=== PATIENT | female | born 1985 | race African-American/Black ===

== ENCOUNTER 2017-12-31 12:05 | Outpatient (CLI) | payer OTHER ==
[2017-12-31] MEDS: LACTATED RINGER'S 1,000 ML IV (13:46)
== END 2017-12-31 17:00 | disposition home or self-care (01) ==
LOC: OBT 12:05 → L-D 12:05 → OBT 17:00
DX: O36.8130 Decreased fetal movements, third trimester, not applicable or unspecified (principal); Z3A.39 39 weeks gestation of pregnancy
CPT/HCPCS: 36415; 76816; 76818; 96360; 96361

== ENCOUNTER 2018-01-01 10:22 | Inpatient (IN) | payer OTHER ==
[2018-01-01] MEDS ORDERED: CARBOPROST 250 MCG INJ IM (11:30)
[2018-01-01] MEDS ORDERED: BUTORPHANOL 1 MG INJ IV (11:30)
[2018-01-01] MEDS ORDERED: OXYTOCIN 30 UNITS/LR 500 ML IV (11:30)
[2018-01-01] MEDS ORDERED: MISOPROSTOL 200 MCG TAB PR (11:30)
[2018-01-01] MEDS ORDERED: LIDOCAINE 1% (MPF) 30 ML INJ INJ (11:30)
[2018-01-01] MEDS ORDERED: METHYLERGONOVINE 0.2 MG INJ IM (11:30)
[2018-01-01] MEDS ORDERED: BUTORPHANOL 2 MG INJ IV (11:30)
[2018-01-01] MEDS: LACTATED RINGER'S 1,000 ML IV* ×4 (11:49→22:45)
[2018-01-01 12:01] LABS: ADD MAN DIFF? NO
[2018-01-01 12:10] LABS: BASOPHILS % 0.2 % (0.0-2.0); EOSINOPHILS % 0.4 % (0.0-7.0); HEMATOCRIT 39.5 % (37.0-47.0); HEMOGLOBIN 12.9 g/dl (12.0-16.0); LYMPHOCYTES # 1.5 10^3/ul (0.8-2.9); LYMPHOCYTES % 31.3 % (15.0-51.0); MEAN CORPUSCULAR HEMOGLOBIN 27.7 pg (29.0-33.0); MEAN CORPUSCULAR HGB CONC 32.7 g/dl (32.0-37.0); MEAN CORPUSCULAR VOLUME 84.9 fl (82.0-101.0); MEAN PLATELET VOLUME 11.2 fl (7.4-10.4); MONOCYTE # 0.6 10^3/ul (0.3-0.9); MONOCYTES % 11.2 % (0.0-11.0); NEUTROPHIL # 2.7 10^3/ul (1.6-7.5); NEUTROPHILS % 54.4 % (39.0-77.0); PLATELET COUNT 175 10^3/UL (140-415); RED BLOOD COUNT 4.65 10^6/ul (4.20-5.40); RED CELL DISTRIBUTION WIDTH 16.5 % (11.5-14.5)
[2018-01-01 12:10] LABS: WHITE BLOOD COUNT 4.9 10^3/ul (4.8-10.8)
[2018-01-01 12:39] LABS: INR 0.92; PROTIME 12.4 Sec (11.9-14.9)
[2018-01-01] MEDS: OXYTOCIN 30 UNITS/LR 500 ML IV (13:28)
[2018-01-01 20:00] LABS: HEPATITIS B SURFACE ANTIGEN NEGATIVE (NEGATIVE)
[2018-01-01] MEDS ORDERED: FENTAnyl 2MCG/ML-ROPIV 0.2% 100 ML (21:14)
[2018-01-01] MEDS ORDERED: NALOXONE (0.4 MG/ML) INJ IV (21:30)
[2018-01-01 22:39] LABS: RAPID PLASMA REAGIN NONREACTIVE (NR)
[2018-01-02] MEDS: LACTATED RINGER'S 1,000 ML IV* ×3 (03:24→14:11)
[2018-01-02] MEDS: FENTAnyl 2MCG/ML-ROPIV 0.2% 100 ML BAG EPI ×2 (05:32→14:50)
[2018-01-02] MEDS: EPHEDrine SULFATE 50 MG/5 ML SYG IV (06:55)
[2018-01-02] MEDS: OXYTOCIN 30 UNITS/LR 500 ML IV ×2 (12:09→18:02)
[2018-01-02] MEDS: MINERAL OIL LIGHT 10 ML VIAL TOP (17:36)
[2018-01-02] MEDS ORDERED: METHYLERGONOVINE 0.2 MG INJ IM (20:00)
[2018-01-02] MEDS ORDERED: MISOPROSTOL 200 MCG TAB PR (20:00)
[2018-01-02] MEDS ORDERED: ZOLPIDEM 5 MG TAB PO (20:00)
[2018-01-02] MEDS ORDERED: CARBOPROST 250 MCG INJ IM (20:00)
[2018-01-02] MEDS ORDERED: OXYTOCIN 30 UNITS/LR 500 ML IV (20:00)
[2018-01-02] MEDS ORDERED: OXYCODONE/ASPIRIN (4.88/325) TAB PO (20:00)
[2018-01-02] MEDS: BENZOCAINE 20% 56 ML SPRAY TOP (21:32)
[2018-01-02] MEDS: SENNA/DOCUSATE NA (8.6MG/50MG) TAB PO (21:32)
[2018-01-02] MEDS: LANOLIN 7 GM TUBE TOP (21:32)
[2018-01-02] MEDS: WITCH HAZEL/GLYCERIN PAD PR (21:32)
[2018-01-03] MEDS: IBUPROFEN 600 MG TAB PO ×4 (00:09→17:41)
[2018-01-03] MEDS: SENNA/DOCUSATE NA (8.6MG/50MG) TAB PO ×2 (09:03→21:00)
[2018-01-03 09:38] LABS: ADD MAN DIFF? NO
[2018-01-03 09:41] LABS: BASOPHILS % 0.1 % (0.0-2.0); EOSINOPHILS % 0.1 % (0.0-7.0); HEMATOCRIT 34.5 % (37.0-47.0); HEMOGLOBIN 11.2 g/dl (12.0-16.0); LYMPHOCYTES # 1.1 10^3/ul (0.8-2.9); MEAN CORPUSCULAR HEMOGLOBIN 27.9 pg (29.0-33.0); MEAN CORPUSCULAR HGB CONC 32.5 g/dl (32.0-37.0); MEAN CORPUSCULAR VOLUME 85.8 fl (82.0-101.0); MEAN PLATELET VOLUME 11.4 fl (7.4-10.4); NEUTROPHIL # 7.9 10^3/ul (1.6-7.5); NEUTROPHILS % 78.2 % (39.0-77.0); PLATELET COUNT 160 10^3/UL (140-415); RED BLOOD COUNT 4.02 10^6/ul (4.20-5.40); RED CELL DISTRIBUTION WIDTH 16.5 % (11.5-14.5)
[2018-01-04] MEDS: OXYCODONE/ASPIRIN (4.88/325) TAB PO (02:35)
[2018-01-04] MEDS: WITCH HAZEL/GLYCERIN PAD PR (02:35)
[2018-01-04] MEDS: IBUPROFEN 600 MG TAB PO ×2 (06:00)
[2018-01-04] MEDS: SENNA/DOCUSATE NA (8.6MG/50MG) TAB PO (09:00)
[2018-01-04] MEDS: DIPHTH/TET/ACEL PERTUSS (ADULT) 0.5 ML VIAL IM* (09:37)
== END 2018-01-04 11:30 | disposition home or self-care (01) | DRG 775 ==
LOC: OBT 10:22 → L-D 10:22 → OBT 11:20 → L-D 11:20 → PP1 01-02 19:54
PROVIDERS: Obstetrics & Gynecology
PROC: 4A1HXCZ Monitoring of Products of Conception, Cardiac Rate, External Approach (ICD-10-PCS; 2018-01-01)
PROC: 3E0P7GC Introduction of Other Therapeutic Substance into Female Reproductive, Via Natural or Artificial Opening (ICD-10-PCS; 2018-01-01)
PROC: 10E0XZZ Delivery of Products of Conception, External Approach (ICD-10-PCS; principal; 2018-01-02)
PROC: 0HQ9XZZ Repair Perineum Skin, External Approach (ICD-10-PCS; 2018-01-02)
PROC: 3E0234Z Introduction of Serum, Toxoid and Vaccine into Muscle, Percutaneous Approach (ICD-10-PCS; 2018-01-04)
DX: O76 Abnormality in fetal heart rate and rhythm complicating labor and delivery (principal); O70.0 First degree perineal laceration during delivery; Z3A.39 39 weeks gestation of pregnancy; Z37.0 Single live birth
CPT/HCPCS: 62319; 76818; 85025; 85610; 85730; 86592; 86850; 86900; 86901; 87340; 90715